=== PATIENT | male | born 1960 | race African-American/Black ===

== ENCOUNTER 2016-06-27 18:59 | Inpatient (IN) | payer SELFPAY ==
--- NOTE | ~2016-06-27 | CT16 ---
[facility] of [facility] RADIOLOGY TEXT RESULTS PATIENT: MAXINE DUBON LOCATION: C2A - : 60 UNIT #: [id number] AGE: [address]: Abhijit Jorge MD SEX: M ORDER DR: [id number] [facility] [address]. [place], [place] [address] [id number] MR#: [id number] #: [id number] NAME: MAXINE DUBON. : 1960 SEX: M STUDY DATE/TIME: 06/28/2016 15:20 UNIT: [facility] ROOM: 219 STUDY DESCRIPTION: CT Angio Chest for PE Attending Physician: Abhijit Jorge M.D. Ordering Physician: Abhijit Jorge M.D. Primary Care Physician: Primary Care Physician No MEDICAL IMAGING REPORT This report is preliminary unless electronic signature is present EXAM CT angiography chest for PE, 06/28/2016 HISTORY Possible PE, CAP with RF. Weakness since Sunday06/23/2016. Evaluate for PE. Septic emboli. IBBM. Pneumonia, sepsis. TECHNIQUE This CT exam was performed with one or more of the following radiation dose reduction techniques: automatic exposure control, adjustment of mA and/or kV according to patient size, and iterative reconstruction. CT pulmonary angiography was performed with intravenous administration 80 mL Isovue-370. 3 dimensional reconstructions performed through the pulmonary arteries. Most recent CT of the chest for comparison is dated 12/30/2004. FINDINGS There are limited views of the lower thorax from CT abdomen and pelvis 06/27/2016. No axillary adenopathy. A 9-10 mm short-axis subcarinal/azygoesophageal recess node likely reactive in nature given findings elsewhere on the scan. Small hilar nodes seen. Heart is mildly enlarged. No pleural effusions. No pericardial effusion. The liver has a very slightly nodular contour. Correlate with any clinical risk factors for cirrhosis. No suspicious focal hepatic parenchymal abnormality. Only a portion of the liver is visualized. The spleen, pancreas, adrenal glands and upper renal poles are unremarkable in their visualized extent. Esophagus, stomach, transverse colon unremarkable in visualized extent. There is contrast material in the patient's colon from prior CT examination. By comparison to yesterday's CT of the abdomen, the 2 cm hypodense structure in segment 7 of the liver is less conspicuous. It is unchanged STS. [facility] A Service of [facility] RADIOLOGY TEXT RESULTS PATIENT: MAXINE DUBON LOCATION: C2A 219-01 : 60 UNIT #: [id number] AGE: [address]: Abhijit Jorge MD SEX: M ORDER DR: from CT chest December 2004 felt to be benign in nature. Probably hemangioma given its overall imaging characteristics between these 3 studies. There is no compelling evidence of pulmonary thromboembolic disease. The main pulmonary artery is prominent measuring 3.3 cm in diameter which could be a reflection of underlying pulmonary arterial hypertension. The ascending aorta measures about 3.7 cm in diameter. There is no dissection. The great vessel origins are patent. The celiac axis is patent. Bony structures show no acute bony abnormality. Rudimentary T12 ribs. The pulmonary parenchyma shows paracentral emphysema in the upper lung zones more pronounced on the right than left. There is extensive right lower lobe consolidative airspace disease greater in extent and density than on yesterday's CT abdomen and pelvis and most consistent with pneumonia. No nodular or cavitary component seen at this time. There is an area of band-like atelectasis and/or pneumonia in the medial segment right middle lobe slightly more conspicuous than on yesterday's examination. There are mild patchy and linear densities in the dependent left lower lobe more likely predominately atelectatic in nature. Small focus of airspace disease anterior left upper lobe is nonspecific but probably an area of atelectasis. No suspicious nodule is seen. Followup to complete radiographic resolution of pulmonary parenchymal findings is recommended. IMPRESSION 1. No PE. 2. The main pulmonary artery is prominent measuring about 3.3 cm in diameter. This may be a reflection of some degree of underlying pulmonary arterial hypertension. 3. Ectatic ascending aorta measuring about 3.7 cm in diameter. No dissection. The visualized aortic branch vessels are patent. 3. Extensive consolidative airspace disease right lower lobe greater in extent and density than on yesterday's CT abdomen and pelvis and most suggestive of a severe right lower lobe pneumonia. No cavitation. No nodular component seen at this time. Followup to complete radiographic resolution strongly recommended. 4. Less pronounced areas of linear and patchy airspace density medial segment right middle lobe, in the dependent right left lower lobe and in the anterior left upper lobe more likely areas of atelectasis or possible areas of mild pneumonitis. 5. No suspicious nodule. 6. Paracentral emphysema upper lung zones, right greater than left. 7. Mild cardiac enlargement. 8. Slightly nodular appearance of the hepatic contour. Correlate with any risk factors for underlying cirrhosis. 9. A 2 cm hypodense focus segment 7 of liver unchanged from studies dating to 2004 and favored to be benign in nature. Appearance upon [facility] A Service of [facility] RADIOLOGY TEXT RESULTS PATIENT: MAXINE DUBON LOCATION: [facility] 219-01 : 60 UNIT #: [id number] AGE: [address]: Abhijit Jorge MD SEX: M ORDER DR: review of prior examinations would favor hemangioma. 10. Remainder of visualized upper abdomen unremarkable. Dictated by... Onel Copeland M.D. THIS IS AN ELECTRONICALLY VERIFIED REPORT Onel Copeland M.D. at 06/29/2016 9:03 AM Elieser TD: 06/28/2016 19:40 JOB #: [id number] MEDICAL IMAGING REPORT Page 1 of 1 COPY
--- NOTE | ~2016-06-27 | EKG ---
PATIENT: MAXINE DUBON UNIT #: [id number] Ventricular Rate: 90 BPM Atrial Rate: 90 BPM P-R Interval: 144 ms QRS Duration: 88 ms Q-T Interval: 362 ms QTC Calculation(Bezet): 442 ms P [place]: 57 degrees Calculated R [place]: 83 degrees Calculated T [place]: 60 degrees Diagnosis Line: Normal sinus rhythm with sinus arrhythmia Diagnosis Line: Normal ECG Diagnosis Line: When compared with ECG of 16-MAR-2013 10:16, Diagnosis Line: No significant change was found Diagnosis Line: Confirmed by GABRIELLE FOREMAN MD ([id number]) on 06/28/2016 Diagnosis Line: 10:06:00 AM INTERPRETING MD: AHSAN HERNANDEZ
--- NOTE | ~2016-06-27 | CT2 ---
[facility] A Service of [facility] RADIOLOGY TEXT RESULTS PATIENT: MAXINE DUBON LOCATION: [facility] 219-01 : 60 UNIT #: [id number] AGE: [address]: Abhijit Jorge MD SEX: M ORDER DR: [id number] [place] [id number] [place], [place] [address] [id number] E MR#: [id number] #: [id number] NAME: MAXINE DUBON : 1960 SEX: M STUDY DATE/TIME: 06/27/2016 22:45 UNIT: [facility] ROOM: STUDY DESCRIPTION: CT Abd and Pelv W Cont Attending Physician: Chris Merchant M.D. Ordering Physician: Ed Alejandro Nunn M.D. Primary Care Physician: Primary Care Physician No MEDICAL IMAGING REPORT This report is preliminary unless electronic signature is present EXAM CT abdomen and pelvis with contrast HISTORY Blood in stool, fever, body aches, weakness since Sunday 5 days ago. FINDINGS Axial images performed through the abdomen and pelvis following IV and oral contrast. Multiplanar reconstructed images reviewed at a workstation. This CT exam was performed with one or more of the following radiation dose reduction techniques: Automatic exposure control, adjustment of mA and/or kV according to patient size, and iterative reconstruction. ABDOMEN: Extensive airspace disease noted in the posteromedial aspect right lower lobe most compatible with acute infectious pneumonia. No effusions. Small amount of right middle lobe atelectasis. Low-attenuation lesion seen in the posterior aspect of the right hepatic lobe near the IVC, which was present on the patient's study from 2006 is most compatible with a benign etiology. Spleen and gallbladder are unremarkable. The pancreas and adrenal glands are unremarkable. There are bilateral renal cortical cysts and a small, nonobstructing stone lower-pole right kidney. Stomach, small bowel, colon and appendix are unremarkable. Retroperitoneum demonstrates mild aortic atherosclerotic changes. PELVIS: Bladder and prostate appear normal. Osseous structures demonstrates degenerative changes lumbar spine. IMPRESSION 1. Focal airspace disease posteromedial segment, right lower lobe compatible with acute infectious pneumonia. Small amount of right [facility] A Service of [facility] & [facility] RADIOLOGY TEXT RESULTS PATIENT: MAXINE DUBON LOCATION: C2A 219-01 : 60 UNIT #: [id number] AGE: [address]: Abhijit Jorge MD SEX: M ORDER DR: middle lobe, lingular and left lower lobe atelectasis. 2. Low-attenuation lesion posterior aspect right hepatic lobe reported on a study from 2006 and appears stable, compatible with benign etiology. 3. Visualized GI tract unremarkable. Dictated by... Mariajose Mohan M.D. THIS IS AN ELECTRONICALLY VERIFIED REPORT Mariajose Mohan M.D. at 06/28/2016 10:33 PM FLAQUITA/eduard TD: 06/27/2016 23:19 JOB #: [id number] MEDICAL IMAGING REPORT Page 1 of 1 COPY
--- NOTE | ~2016-06-27 | HP ---
Unit #: [id number] #: [id number] Patient: MAXINE DUBON [id number] [address] [place], [place] [address] [id number] E MR#: [id number] NAME: MAXINE DUBON ROOM: Age: 56 Sex: M Admission Date: 06/28/2016 : 1960 Attending Physician: Garett Merchant Primary Care Physician: Primary Care Physician No HISTORY AND PHYSICAL CHIEF COMPLAINT Community-acquired pneumonia. HISTORY OF PRESENT ILLNESS This pleasant 56-year-old male with hypertension, GERD, hyperlipidemia, and COPD is admitted for community-acquired pneumonia. The patient was in his usual state of health until about 5 days prior to admission when he developed generalized myalgias, weakness, minor nonproductive cough. Since that time he developed dyspnea on exertion, fever, sweats, chills, frontal headache and left lower quadrant discomfort. He presented to this emergency department late last evening with a temperature of 101 which increased to about 103 degrees. His 02 sats dropped to about 88 to 90% on room air. Chest x-ray was negative but a CT scan of the abdomen and pelvis showed that the patient has a right lower lobe pneumonia. He was bolused with fluids, given Zofran, Tylenol and Rocephin. PAST MEDICAL HISTORY 1. Hyperlipidemia. 2. GERD. 3. Chronic back pain. 4. Panic attacks. 5. Previous treatment for meningitis. 6. COPD. 7. Essential hypertension. 8. DJD. 9. Patient's (lungs were scraped) in 2006 after what sounds to be an episode of bacteremia from a dental infection. 10. Umbilical hernia repair. 11. Left inguinal hernia repair. PAST SURGICAL HISTORY SOCIAL HISTORY The patient lives with his . He decreased the amount that he smokes, smokes twice a week when he drinks alcohol however, during the two times a week that he drinks alcohol will smoke a pack a day at that time. He drinks alcohol twice a week. FAMILY HISTORY Negative for heart and lung disease. Unit #: [id number] #: [id number] Patient: MAXINE DUBON ALLERGIES No known drug allergies. MEDICATIONS None as the patient has been out of his medicines since March when he lost his job. He was taking Klonopin, Zocor, Lisinopril, Prilosec, and a medicine for arthritis. REVIEW OF SYSTEMS Notable for some shortness of breath, fever, sweats, chills, generalized myalgias, frontal headache, left lower quadrant pain, COPD, tobacco use, hyperlipidemia. GERD, panic attacks, hypertension, DJD. Above mentioned surgeries. All other systems reviewed and otherwise negative. PHYSICAL EXAMINATION GENERAL APPEARANCE: Very pleasant 56-year-old male currently in no acute distress. VITAL SIGNS: Temperature was as high as 103 degrees, pulse 90, respirations 20, B/P 131/64, 02 saturations were 87 to 91% on room air. HEENT: Eyes - PERRLA, extraocular muscles intact. Pharynx is benign. NECK: Supple without adenopathy or thyromegaly. CHEST: Chest does reveal some crackles at the bases, right more so than the left. HEART: Normal S1 and S2, right soft systolic murmur, best heard at the apex. ABDOMEN: Bowel sounds are present, no hepatosplenomegaly, tenderness or masses. EXTREMITIES: Without edema, no splinters of hemorrhages noted over the fingernail beds. Pedal pulses are present. NEUROLOGIC: The patient is awake, alert, oriented. Cranial nerves are intact. He has equal strength throughout. DIAGNOSTIC STUDIES LABORATORY: Hematocrit 46.2, white blood count 17.7, normal platelet count. SMA 12 - potassium 3.3, chloride 96, AST 65, ALT 66, alkaline phos 140. Cardiac markers negative. Influenza serology negative. Urinalysis - trace leukocyte esterase, trace protein without significant white or red cells. IMAGING: Chest x-ray - no acute disease. CT scan of the abdomen and pelvis show right lower lobe pneumonia. Low-attenuation lesion in the right hepatic lobe, stable in 2006 compatible with benign etiology. CARDIOVASCULAR: EKG - sinus rhythm rate 90 with APC's. ASSESSMENT 1. Community-acquired pneumonia with underlying COPD. 2. Hypokalemia. 3. Mildly elevated LFTs. 4. GERD. 5. History of hypertension. PLAN 1. Rocephin, Zithromax, DuoNebs. 2. IV fluids and supportive treatment. 3. DVT prophylaxis. 4. Replace potassium, check magnesium. 5. Smoking cessation counseling. Unit #: [id number] #: [id number] Patient: MAXINE DUBON Anna 6. Repeat labs in the morning. STAT * RESULT Dictated by Aniyah Martin/ljnevaeh TD: 06/28/2016 01:27 JOB #: [id number] HISTORY AND PHYSICAL Page 1 of 1 X Karen Damon MD X HISTORY AND PHYSICAL
--- NOTE | ~2016-06-27 | DS ---
Unit #: [id number] #: [id number] Patient: MAXINE DUBON [id number] [address] [place], [place] [address] [id number] I MR#: [id number] NAME: MAXINE DUBON ROOM: 219 Age: 56 Sex: M Admission Date: 06/28/2016 : 1960 Discharge Date: 06/30/2016 Attending Physician: Abhijit Jorge M.D. Primary Care Physician: Primary Care Physician No DISCHARGE SUMMARY DISCHARGE DIAGNOSES 1. Community-acquired pneumonia treating for presumed Gram-negative charley. Blood culture with no growth. Urine legionella and strep were ordered but no sample was sent. Sepsis present on admission due to pneumonia. 2. IV drug use with cocaine. I stressed cessation, patient voiced understanding and stated that he is wanting to quit. client services assistant have seen the patient. 3. History of essential hypertension. Blood pressure has been stable during this hospitalization without any use of antihypertensives. 4. Stated history of dyslipidemia. Will given prescription for atorvastatin on discharge. 5. History of gastroesophageal reflux disease. Will be discharged with Protonix. 6. Hypokalemia, resolved with replacement. 7. Transaminitis. Hepatitis panel is pending. CT consistent with cirrhosis. CONSULTANTS None. PROCEDURES None. DIAGNOSTIC STUDIES IMAGING 1. 2-view chest x-ray 06/27/2016. Impression: No acute cardiopulmonary findings. 2. CT abdomen and pelvis 06/27/2016. Impression: 1) Focal airspace disease posterior medial segment right lower lobe compatible with acute infectious pneumonia, small amounts of right middle lobe, lingula, and left lower lobe atelectasis. 2) Low attenuation lesion posterior aspect right hepatic lobe reported on the study from March 2006 and appears stable, compatible with benign etiology. 3) Visualized GI tract unremarkable. 3. CT angio chest per PE protocol 06/28/2016. Impression: 1) No PE. 2) The main pulmonary artery is prominent measuring about 3.3 cm in diameter. This may be a reflection of some degree of underlying pulmonary arterial hypertension. 3) Ectatic ascending aorta measuring about 3.7 cm in diameter, no dissection. The visualized aortic branch vessels are patent. 4) Extensive consolidative airspace disease right lower lobe greater in extent and density than on yesterday's CT abdomen and pelvis and most suggestive of a severe right lower lobe pneumonia, no cavitation, no nodular component seen at this time. Follow up to complete radiographic resolution is strongly recommended. 5) Less pronounced areas of linear and patchy Unit #: [id number] #: [id number] Patient: MAXINE DUBON airspace density medial segment right middle lobe in the dependent left lower lobe and in the anterior left upper lobe more likely areas of atelectasis or possible areas of mild pneumonitis. 6) No suspicious nodule. 7) Paracentral emphysema upper lung zones right greater than left. 8) Mild cardiac enlargement. 9) Slightly nodular appearance of the hepatic contour; correlate with any risk factors for underlying cirrhosis. 10) 2 cm hypodense focus segment 7 of liver unchanged from studies dating to 2004 and they appear to be benign in nature. Appearance upon review of prior examinations would favor hemangioma. 11) Remainder of visualized upper abdomen unremarkable. LABORATORY STUDIES Today's discharge labs, glucose 111, BUN 10, creatinine 0.7, sodium 134, potassium 3.5, chloride 103, CO2 is 22, calcium 8.5. CBC WBC 9.2, RBC 4.09, hemoglobin 12.6, hematocrit 38.4, MCV 93.9, MCH 30.9, MCHC 32.9, RDW 14.1, platelets 141, MPV 11.7. HOSPITAL COURSE The patient is a 56-year-old male with past medical history of essential hypertension, hyperlipidemia, GERD, who presented to the emergency department due to symptoms of generalized weakness, malaise, minor nonproductive cough. The patient stated that symptoms started about five days prior to hospitalization. He also had developed dyspnea on exertion, fever, chills, and sweats, frontal headache and left lower quadrant abdominal pain. He presented to the emergency department where he had a fever with temperature of 101 and a second reading of 103. His oxygen saturation was 88% to 90% on room air. Chest x-ray was negative but CT abdomen and pelvis due to abdominal revealed right lower lobe pneumonia. He was given bolus IV fluid, Zofran, Tylenol, Rocephin and was admitted for community-acquired pneumonia as well as elevated LFTs. As patient continued to get IV antibiotics with Zithromax and Rocephin as well as IV fluid hydration, his symptoms continued to improve. The 48 hours prior to discharge the patient has been afebrile. Patient was found to be diaphoretic and continued with persistent fever. Therefore, a urine drug screen was ordered and it was positive for cocaine as well as opioids. The patient does admit to using cocaine where he stated he would sniff as well as inject it. Therefore, a CT angio chest was done to rule out a PE. This reveals no PE but had findings as stated above. At this time, patient is stable to be discharged home. Of note, the patient does have history of having high blood pressure. States that he uses lisinopril but he has not needed any antihypertensive during this hospitalization. I will be discharging patient on Lopressor instead of lisinopril given the fact that on his CT chest it reveals that he has ascending aorta measuring 3.7 cm. the patient does not have a family doctor, therefore, Marcia, social media assistant had seen patient in consultation both for his IV drug use and no family physician, no insurance. We will be assisting patient as necessary to be able to find access to healthcare. DISCHARGE CONDITION Stable. DISCHARGE FOLLOWUP I have arranged a followup appointment with the [facility] office next , 07/06/2016, at 9:40 a.m. DISCHARGE ACTIVITY Unit #: [id number] #: [id number] Patient: AMXINE DUBON None restricted. DISCHARGE DIET Resume to diet as prior to hospitalization, heart-healthy diet. DISCHARGE MEDICATIONS 1. Protonix 40 mg p.o. daily. 2. Levaquin 750 mg p.o. daily for the next 5 days. 3. Atorvastatin 40 mg p.o. daily. 4. I will be giving him a low dose of propranolol 20 mg p.o. b.i.d. Since he was already taking lisinopril, I will also give him a dose of 10 mg p.o. daily. Both will be held if systolic blood pressure is less than 110. Dictated by... Talisha Suh PA-C for Aniyah Peña/jenn TD: 07/02/2016 19:48 JOB #: [id number] DISCHARGE SUMMARY Page 1 of 1 X X DISCHARGE SUMMARY
--- NOTE | ~2016-06-27 | CR63 ---
[facility] A Service of [facility] & [facility] RADIOLOGY TEXT RESULTS PATIENT: MAXINE DUBON LOCATION: [facility] 219-01 : 60 UNIT #: [id number] AGE: [address]: Abhijit Jorge MD SEX: M ORDER DR: [id number] [facility] [address] [place], [place] [address] [id number] E MR#: [id number] Acc #: [id number] NAME: MAXINE DUBON : 1960 SEX: M STUDY DATE/TIME: 06/27/2016 21:01 UNIT: [facility] ROOM: STUDY DESCRIPTION: CR Chest 2 View Attending Physician: Garett Merchant Ordering Physician: Garett Walsh M.D. Primary Care Physician: Primary Care Physician No MEDICAL IMAGING REPORT This report is preliminary unless electronic signature is present EXAM Two-view chest, 06/27/2016 HISTORY 56-year-old male with chest pain and fever today. COMPARISON Chest 03/16/2013 FINDINGS Two views of the chest demonstrate clear lungs. No pleural effusion or pneumothorax. Heart size and mediastinum are normal. Pulmonary vasculature normal. IMPRESSION No acute cardiopulmonary findings. Dictated by... Angel Al M.D. THIS IS AN ELECTRONICALLY VERIFIED REPORT Angel Al M.D. at 06/28/2016 10:58 PM HAILE/ervin TD: 06/27/2016 22:50 JOB #: [id number] MEDICAL IMAGING REPORT Page 1 of 1 COPY
[~2016-06-27 18:59] MED LIST: BACTRIM DS TABL1 TA1 PO; KEFLEX500 MG PO; ORUDIS75 M1 PO; ROBITUSSIN DM118 ML PO; ZITHROMAX PO; [UNRECOGNIZED DRUG - OTHER] DOB
[2016-06-27 19:43] LABS: BASOPHIL# 0.1 X10e3 (0-0.3); BASOPHIL% 0.3 % (0-2.5); HEMATOCRIT 46.2 % (38.0-50.0); HEMOGLOBIN 15.4 gm/dL (13.0-16.0); LYMPHOCYTE# 1.4 X10e3 (1.0-3.5); LYMPHOCYTE% 8.1 % (17.0-45.0); MEAN CELL VOLUME 93.6 FL (83-96); MEAN CORPUSCULAR HEMOGLOBIN 31.1 PG (28-34); MEAN CORPUSCULAR HGB CONC 33.3 g/dL (30-36); MEAN PLATELET VOLUME 11.2 FL (6.5-11.5); MONOCYTE# 1.7 X10e3 (0-1.0); MONOCYTE% 9.8 % (3.0-12.0); NEUTROPHIL# 14.5 X10e3 (1.5-7.1); NEUTROPHIL% 81.8 % (40-75); PLATELET COUNT 141 X10e3 (140-420); RED BLOOD COUNT 4.93 X10e (3.90-5.60); RED CELL DISTRIBUTION WIDTH 13.7 % (11.0-15.5); WHITE BLOOD COUNT 17.7 X10e3 (4.0-10.5)
[2016-06-27 19:44] LABS: DIFF IND YES
[2016-06-27 20:01] LABS: BILIRUBIN, DIRECT 0.8 mg/dL (0.0-0.2); BILIRUBIN,INDIRECT 1.2 mg/dL (0.0-0.9); BUN/CREATININE RATIO 13.33; CALCIUM SERUM 8.8 mg/dL (8.4-10.2); CREATININE SERUM 0.9 mg/dL (0.6-1.4); GLOM FILT RATE Estimated 110.3 mL/min (>60); PLATELET ESTIMATE NORMAL (NORMAL); POTASSIUM 3.3 mmol/L (3.5-5.1); PROTEIN TOTAL SERUM 8.3 g/dL (6.0-8.3)
[2016-06-27 20:51] LABS: URINE SOURCE CLEAN CATCH
[2016-06-27 20:57] LABS: URINE APPEARANCE CLEAR; URINE BLOOD TRACE (NEG); URINE COLOR DK YELLOW; URINE GLUCOSE NEG (NEG); URINE KETONE TRACE (NEG); URINE LEUKOCYTE ESTERASE TRACE (NEG); URINE NITRATE NEG (NEG); URINE PROTEIN TRACE (NEG); URINE SPECIFIC GRAVITY 1.022 (1.003-1.035)
[2016-06-27 21:03] LABS: URINE BACTERIA AUWI NEG (NEGATIVE); URINE SQUAMOUS EPITHELIAL CELL NONE SEEN /[HPF]; UWBCS1 AUWI 0-2 (0-5)
[2016-06-27 21:05] LABS: CULTURE INDICATED? NO
[2016-06-27 21:09] LABS: POC - CKMB <1.0 ng/mL (0.0-7.9); POC - TROPONIN <0.05 ng/mL (<=0.05)
[2016-06-27] MEDS ORDERED: NO MEDICATIONS (21:41)
[2016-06-27 21:42] LABS: POC - CKMB <1.0 ng/mL (0.0-7.9); POC - TROPONIN <0.05 ng/mL (<=0.05)
[2016-06-27 22:22] LABS: INFLUENZA A NEG (NEG); INFLUENZA B NEG (NEG)
[2016-06-28 14:38] LABS: MAGNESIUM 2.1 mg/dL (1.6-3.0)
[2016-06-28 14:56] LABS: %MB 0.7 % (0.0-4.0)
[2016-06-28 15:54] LABS: PROCALCITONIN 1.05 NG/ML
[2016-06-28 18:15] LABS: AMPHETAMINE NEG (NEG); BARBITURATES NEG (NEG); BENZODIAZEPINES NEG (NEG); COCAINE POS (NEG); MARIJUANA NEG (NEG); OPIATES POS (NEG); TRICYCLIC ANTIDEPRESSANTS NEG (NEG); U METHADONE NEG (NEG)
[2016-06-28 20:48] LABS: MB 1.3 ng/ml
[2016-06-29 07:18] LABS: HEMATOCRIT 38.9 % (38.0-50.0); MEAN CELL VOLUME 94.7 FL (83-96); MEAN CORPUSCULAR HEMOGLOBIN 30.6 PG (28-34); MEAN CORPUSCULAR HGB CONC 32.3 g/dL (30-36); MEAN PLATELET VOLUME 11.9 FL (6.5-11.5); RED BLOOD COUNT 4.11 X10e (3.90-5.60); RED CELL DISTRIBUTION WIDTH 14.4 % (11.0-15.5)
[2016-06-29 07:41] LABS: ALBUMIN SERUM 3.1 g/dL (3.5-5.0); BILIRUBIN,TOTAL 1.5 mg/dL (0.2-2.0); BUN/CREATININE RATIO 13.33; CALCIUM SERUM 8.1 mg/dL (8.4-10.2); CREATININE SERUM 0.6 mg/dL (0.6-1.4); GLOM FILT RATE Estimated 130.3 mL/min (>60); HEMOGLOBIN 12.6 gm/dL (13.0-16.0); MAGNESIUM 1.9 mg/dL (1.6-3.0); POTASSIUM 3.6 mmol/L (3.5-5.1); PROTEIN TOTAL SERUM 6.6 g/dL (6.0-8.3)
[2016-06-30 06:23] LABS: HEMATOCRIT 38.4 % (38.0-50.0); HEMOGLOBIN 12.6 gm/dL (13.0-16.0); MEAN CELL VOLUME 93.9 FL (83-96); MEAN CORPUSCULAR HEMOGLOBIN 30.9 PG (28-34); MEAN CORPUSCULAR HGB CONC 32.9 g/dL (30-36); MEAN PLATELET VOLUME 11.7 FL (6.5-11.5); RED BLOOD COUNT 4.09 X10e (3.90-5.60); RED CELL DISTRIBUTION WIDTH 14.1 % (11.0-15.5); WHITE BLOOD COUNT 9.2 X10e3 (4.0-10.5)
[2016-06-30 06:55] LABS: BUN/CREATININE RATIO 14.28; CALCIUM SERUM 8.5 mg/dL (8.4-10.2); CREATININE SERUM 0.7 mg/dL (0.6-1.4); GLOM FILT RATE Estimated 122.3 mL/min (>60); POTASSIUM 3.5 mmol/L (3.5-5.1)
[2016-06-30] MEDS ORDERED: LEVAQUIN750 M1 PO (09:07)
[2016-06-30] MEDS ORDERED: PROPANOLOL PO (09:07)
[2016-06-30] MEDS ORDERED: PROTONIX PO (09:08)
[2016-06-30] MEDS ORDERED: LISINOPRIL10 MG PO (09:08)
[2016-06-30] MEDS ORDERED: LIPITOR40 MG PO (09:09)
[2016-06-30 10:34] LABS: LEGIONELLA AG URINE NEG (NEG)
[2016-07-01 07:34] LABS: HA AB IGM (HEPPAN) Nonreactive (()); HB CORE AB IGM (HEPPAN) Nonreactive (Nonreactive); HB S AG (HEPPAN) Nonreactive (Nonreactive); HEP C AB (HEPPAN) Nonreactive (Nonreactive); HEP C AB SIGNAL TO CUTOFF 0.03 ratio (<1.00)
== END 2016-06-30 11:11 | disposition home or self-care (01) | DRG 871 ==
LOC: CED 18:59 → CEDOF 06-28 01:25 → CED 06-28 01:31 → CEDOF 06-28 07:41 → C2A 06-28 07:50 → CEDOF 06-28 07:50 → C2A 06-30 11:11
PROVIDERS: Emergency Medicine; Internal Medicine; Physician Assistant Medical
PROC: B32TYZZ Computerized Tomography (CT Scan) of Left Pulmonary Artery using Other Contrast (ICD-10-PCS; principal; 2016-06-28)
PROC: B32SYZZ Computerized Tomography (CT Scan) of Right Pulmonary Artery using Other Contrast (ICD-10-PCS; 2016-06-28)
DX: A41.9 Sepsis, unspecified organism (principal); J15.6 Pneumonia due to other Gram-negative bacteria; J96.00 Acute respiratory failure, unspecified whether with hypoxia or hypercapnia; J44.1 Chronic obstructive pulmonary disease with (acute) exacerbation; F14.10 Cocaine abuse, uncomplicated; I10 Essential (primary) hypertension; E78.5 Hyperlipidemia, unspecified; K21.9 Gastro-esophageal reflux disease without esophagitis; E87.6 Hypokalemia
CPT/HCPCS: 36415; 71020; 71275; 74177; 80048; 80053; 80074; 80076; 80307; 81003; 82308; 82550; 82553; 82947; 83605; 83735; 83880; 84132; 84484; 85025; 85027; 87040; 87449; 87633; 87804; 87806; 87899; 93005; 94640; 94760; 96361; 96374; 96375; 99285; J0456; J0696; J1200; J1650; J2405; Q9967